=== PATIENT | female | born 1985 | race American Indian/Alaskan Native ===

== ENCOUNTER 2016-11-13 20:30 | Outpatient (CLI) | payer MEDICAID ==
[2016-11-13 21:17] VITALS: BP 114/56
[2016-11-13] MEDS ORDERED: LACTATED RINGERS 1,000 ML IV ONE (21:17)
[2016-11-13 21:34] LABS: Bilirubin,Urine NEG (Negative); Blood,Urine NEG (Negative); Ketones,Urine NEG (Negative); Leukocyte Esterase,Urine NEG (Negative); Nitrite,Urine NEG (Negative); Protein,Urine <15 mg/dL mg/dL (Negative); Urobilinogen,Urine < 2.0 mg/dL (<2.0); WBC,Urine < 1.0 /HPF (0.0-6.0)
== END 2016-11-13 21:58 | disposition home or self-care (01) ==
LOC: TRG 20:30
PROVIDERS: ATTEND Obstetrics & Gynecology
DX: O47.03 False labor before 37 completed weeks of gestation, third trimester (principal); Z3A.29 29 weeks gestation of pregnancy
CPT/HCPCS: 81001

== ENCOUNTER 2017-01-07 13:30 | Outpatient (CLI) | payer MEDICAID ==
[2017-01-07] MEDS ORDERED: LACTATED RINGERS 1,000 ML IV ONE (15:00)
[2017-01-07 16:09] LABS: Bilirubin,Urine NEG (Negative); Blood,Urine NEG (Negative); Ketones,Urine NEG (Negative); Leukocyte Esterase,Urine NEG (Negative); Mucus,Urine FEW /HPF; Nitrite,Urine NEG (Negative); Protein,Urine <15 mg/dL mg/dL (Negative); RBC,Urine < 1.0 /HPF (0.0-6.0); Urobilinogen,Urine < 2.0 mg/dL (<2.0)
[2017-01-07] MEDS ORDERED: BRETHINE SUB-Q ONE ×2 (18:00→18:46)
--- NOTE | 2017-01-08 07:34 | Ultrasound Report ---
ULTRASOUND OB LIMITED History: Rupture of membranes Technique: Transabdominal ultrasound with Doppler interrogation. Gestation: Single Position: Cephalic Amniotic Fluid: Normal CARY = 11.6 cm Heart Rate: 145 BPM
== END 2017-01-07 19:09 | disposition home or self-care (01) ==
LOC: TRG 13:30
PROVIDERS: ATTEND Obstetrics & Gynecology
DX: O47.03 False labor before 37 completed weeks of gestation, third trimester (principal); Z3A.37 37 weeks gestation of pregnancy
CPT/HCPCS: 59025; 76815; 81001; 87210; 96360; 96361; 96372; J3105; J7120